=== PATIENT | female | born 1970 | race Hispanic/Latino ===

== ENCOUNTER 2018-05-13 12:44 | Emergency (ER) | payer OTHER ==
[2018-05-13 13:43] LABS: RAPID GROUP A STREP NEGATIVE (NEGATIVE)
[2018-05-13] MEDS ORDERED: ACETAMINOPHEN 325 MG TAB ONE (14:16)
== END 2018-05-13 15:02 | disposition home or self-care (01) ==
LOC: EDH 12:44
DX: R50.9 Fever, unspecified (principal); R05 Cough; R09.81 Nasal congestion; M54.9 Dorsalgia, unspecified; Z88.6 Allergy status to analgesic agent; Z90.710 Acquired absence of both cervix and uterus; Z72.0 Tobacco use
CPT/HCPCS: 71046; 87804; 87880

== ENCOUNTER 2019-06-28 21:21 | Emergency (ER) | payer SELFPAY ==
[2019-06-28] MEDS ORDERED: ACETAMINOPHEN EXTRA STRENGTH 500 MG TABLET ONE (22:57)
== END 2019-06-29 00:11 | disposition home or self-care (01) ==
LOC: EDH 21:21
DX: S20.211A Contusion of right front wall of thorax, initial encounter (principal); Z72.0 Tobacco use; Z88.5 Allergy status to narcotic agent; Z88.6 Allergy status to analgesic agent; W01.0XXA Fall on same level from slipping, tripping and stumbling without subsequent striking against object, initial encounter; Y93.89 Activity, other specified; Y92.098 Other place in other non-institutional residence as the place of occurrence of the external cause; Y99.8 Other external cause status
CPT/HCPCS: 71045; 81025

== ENCOUNTER 2019-07-28 21:13 | Emergency (ER) | payer SELFPAY ==
[2019-07-28] MEDS ORDERED: LIDOCAINE HCL-MPF 1% 2ML VIAL ONE (22:02)
[2019-07-28] MEDS ORDERED: CEFTRIAXONE SODIUM 1 GM ONE (22:02)
== END 2019-07-28 22:25 | disposition home or self-care (01) ==
LOC: EDH 21:13
DX: K04.7 Periapical abscess without sinus (principal); Z88.6 Allergy status to analgesic agent; Z90.710 Acquired absence of both cervix and uterus; Z98.890 Other specified postprocedural states
CPT/HCPCS: 96372; 99283; J0696; J3490